=== PATIENT | male | born 1970 | race Caucasian/White ===

== ENCOUNTER 2017-10-20 12:48 | Observation (INO) | payer OTHER ==
[2017-10-20] MEDS ORDERED: MORPHINE 4 MG/ML SYR ONE ×2 (13:28→15:28)
[2017-10-20] MEDS ORDERED: NA CHLORIDE 0.9% 1,000 ML ONE (13:28)
[2017-10-20 13:42] LABS: Absolute Monocytes 0.9 K/uL (0.1-1.3); Absolute Neutrophil 6.2 K/uL (1.8-8.0); Basophils % 0.7 % (0-1.3); Eosinophils % 2.7 % (0-4.4); Hematocrit 44.2 % (39.6-49.0); Lymphocytes % 21.4 % (15.3-44.8); MCH 31.2 pg (27.0-35.0); MPV 8.4 fL (7.6-11.3); Monocytes % 9.2 % (3.3-12.3)
[2017-10-20 13:44] LABS: Protime INR 0.97
[2017-10-20 13:48] LABS: Bicarbonate 24 mEq/L (21-31); Glucose Level 126 mg/dL (65-120); Potassium 3.8 mEq/L (3.6-5.0); Sodium Level 135 mEq/L (135-145)
--- NOTE | 2017-10-20 13:49 | RAD REPORT ---
EXAM DESCRIPTION: RAD - Chest Single View - 10/20/2017 1:20 pm CLINICAL HISTORY: Chest pain COMPARISON: October 2016 TECHNIQUE: AP portable chest image was obtained 1316 hours . FINDINGS: Lungs are clear. Heart and vasculature are normal. No measurable pleural effusion and no p neumothorax. No gross bony abnormality seen. No acute aortic findings suspected. IMPRESSION: No acute cardiopulmonary process. No significant interval change.
[2017-10-20 13:54] LABS: ALT/SGPT 35 IU/L (10-60); AST/SGOT 30 IU/L (10-42); Albumin 4.2 g/dL (3.2-5.5); Alkaline Phosphatase 92 IU/L (42-121); BUN Blood Urea Nitrogen 21 mg/dL (6-20); Bilirubin Direct 0.1 mg/dL (0-0.2); Bilirubin Total 0.5 mg/dL (0.3-1.2); Creatine Phosphokinase 231 IU/L (22-269); Magnesium 2.1 mg/dL (1.8-2.5)
[2017-10-20 13:58] LABS: CKMB Creatine Kinase MB 3.1 ng/ml (0.3-4.0)
[2017-10-20] MEDS ORDERED: Morphine 2 MG/2 ML SYR IV PRN (15:12)
[2017-10-20] MEDS ORDERED: ACETAMINOPHEN 500 MG TAB PO PRN (15:12)
--- NOTE | 2017-10-20 15:46 | EKG ---
Test Date: 2017-10-20 Test Time: 15:19:21 Quality Control Director: CHANEL MEASUREMENT RESULTS: Intervals: Rate: 61 KS: 134 QRSD: 92 QT: 444 QTc: 446 [place]: P: 42 KS: 134 QRS: -12 T: 38 INTERPRETIVE STATEMENTS: Normal sinus rhythm Normal ECG Compared to ECG 10/20/2017 13:02:10 T-wave abnormality no longer present Prolonged QT interval no longer present Electronically Signed On 10-20-17 15:45:55 CDT by Martín Hollis
--- NOTE | 2017-10-20 15:47 | EKG ---
Test Date: 2017-10-20 Test Time: 13:02:10 Air Traffic Control Manager: AYE MEASUREMENT RESULTS: Intervals: Rate: 79 PA: 132 QRSD: 92 QT: 402 QTc: 460 [place]: P: 48 PA: 132 QRS: -4 T: 49 INTERPRETIVE STATEMENTS: Normal sinus rhythm Nonspecific T wave abnormality Prolonged QT Abnormal ECG Compared to ECG 10/22/2016 18:28:12 T-wave abnormality now present Prolonged QT interval now present Electronically Signed On 10-20-17 15:46:13 CDT by Martín Hollis
--- NOTE | 2017-10-20 15:51 | ER ---
Nurse's Notes [facility] Emergency Department Name: Osvaldo Diaz Age: 47 yrs Sex: Male : 1970 Arrival Date: 10/20/2017 Time: 12:51 Bed 20 Private MD: Tj Mujica T Diagnosis: Chest pain, unspecified Presentation: 10/20 12:52 Presenting complaint: Patient states: left shoulder pain. Pt states "It feels like when aa5 I had my heart attack a few years ago and they had to put a heart stent in". 12:52 Transition of care: patient was not received from another setting of care. Onset of aa5 symptoms was October 20, 2017. Risk Assessment: Do you want to hurt yourself or someone else? Patient reports no desire to harm self or others. Initial Sepsis Screen: Does the patient meet any 2 criteria? No. Patient's initial sepsis screen is negative. Does the patient have a suspected source of infection? No. Patient's initial sepsis screen is negative. Care prior to arrival: None. 12:52 Method Of Arrival: Ambulatory aa5 12:52 Acuity: BRICE 2 aa5 Historical: - Allergies: 12:52 Iodine; aa5 - Home Meds: 13:04 Protonix 40 mg Oral TbEC 1 tab once daily [Active]; Lipitor 20 mg Oral tab 1 tab once aa5 daily [Active]; Coreg 3.125 mg Oral tab once a day [Active]; Flexeril 10 mg Oral tab once a day [Active]; Mobic 15 mg oral tab 1 tab once daily [Active]; Cymbalta 60 mg oral cpDR 1 cap once daily [Active]; valsartan 160 mg oral tab 1 tab once daily [Active]; aspirin 325 mg Oral tab once daily [Active]; - PMHx: 12:52 melanoma; Myocardial infarction; aa5 - PSHx: 12:52 Roberto lymph node removal; aa5 - Immunization history:: Adult Immunizations up to date. - Ebola Screening: : No symptoms or risks identified at this time. - Social history:: Smoking status: Patient uses tobacco products, smokes one-half pack cigarettes per day. Screenin:00 Abuse screen: Denies threats or abuse. Nutritional screening: No deficits noted. em Tuberculosis screening: No symptoms or risk factors identified. Fall Risk None identified. Assessment: 13:56 General: Appears in no apparent distress. comfortable, Behavior is calm, cooperative, em Reports having pain in back, denies N/V, felt like last 2 heart attacks, denies chest pain. Pain: Complains of pain in back Pain currently is 5 out of 10 on a pain scale. Quality of pain is described as pressure. Neuro: Level of Consciousness is awake, alert, obeys commands, Oriented to person, place, time. Cardiovascular: Capillary refill < 3 seconds Patient's skin is warm and dry. Respiratory: Airway is patent Respiratory effort is even, unlabored, Respiratory pattern is regular, symmetrical. GI: Abdomen is round. GI: Patient currently denies nausea, vomiting. : No signs and/or symptoms were reported regarding the genitourinary system. EENT: No signs and/or symptoms were reported regarding the EENT system. Derm: Skin is intact. Musculoskeletal: Range of motion: intact in all extremities. 14:10 Reassessment: Patient appears in no apparent distress at this time. I agree with above iw assessment by Roni Lockett LVN. 15:00 Reassessment: Patient appears in no apparent distress at this time. Patient and/or em family updated on plan of care and expected duration. Pain level reassessed. Patient is alert, oriented x 3, equal unlabored respirations, skin warm/dry/pink. c/o chest pain, Hannah, BOAT OUTFITTER notified, repeat EKG and new med. orders. 15:38 Reassessment: Patient appears in no apparent distress at this time. Patient and/or em family updated on plan of care and expected duration. Pain level reassessed. Patient is alert, oriented x 3, equal unlabored respirations, skin warm/dry/pink. pt eating dinner tray, chest pain relieved, family at bedside. 16:10 Reassessment: Patient appears in no apparent distress at this time. Patient and/or em family updated on plan of care and expected duration. Pain level reassessed. Patient is alert, oriented x 3, equal unlabored respirations, skin warm/dry/pink. request nicotine patch, Hannah, BOAT OUTFITTER notified Patient denies pain at this time. Patient states feeling better. Patient states symptoms have improved. 16:38 Reassessment: Patient appears in no apparent distress at this time. Dr. Emmanuel at em bedside. 17:14 Reassessment: Patient appears in no apparent distress at this time. Patient and/or em family updated on plan of care and expected duration. Pain level reassessed. Patient is alert, oriented x 3, equal unlabored respirations, skin warm/dry/pink. Patient denies pain at this time. Patient states feeling better. Vital Signs: 12:53 BP 150 / 89; Pulse 84; Resp 20 S; Pulse Ox 97% on R/A; aa5 14:00 BP 140 / 90; Pulse 75; Resp 16; Pulse Ox 99% on R/A; Pain 5/10; em 15:00 BP 147 / 82; Pulse 74; Resp 16; Pulse Ox 99% on R/A; em 16:07 BP 138 / 74; Pulse 61; Resp 18; Pulse Ox 96% on R/A; Pain 2/10; em ED Course: 12:51 Patient arrived in ED. mr 12:51 Tj Mujica MD is Private Physician. mr 12:52 Arm band placed on Patient placed in an exam room, on a stretcher. aa5 12:54 Hannah Dupont [facility]-C [facility]. snw 12:54 Prabhakar Goodman MD is Attending Physician. snw 12:58 Triage completed. aa5 13:06 EKG done, by airframe technical officer. reviewed by Hannah PRIEST. at1 13:11 Roni Lockett LVN is Primary Nurse. em 13:19 X-ray completed. Portable x-ray completed in exam room. Patient tolerated procedure jb2 well. 13:20 XRAY Chest (1 view) In Process Unspecified. EDMS 13:20 No provider procedures requiring assistance completed. Initial lab(s) drawn, by me, em sent to lab. Inserted saline lock: 20 gauge in right antecubital area, using aseptic technique. Blood collected. 14:00 Patient has correct armband on for positive identification. Bed in low position. Call em light in reach. Adult w/ patient. 15:29 EKG done, by airframe technical officer. reviewed by Hannah PRIEST. sm3 15:50 Amaury Emmanuel MD is Hospitalizing Provider. snw 17:25 Patient admitted, IV remains in place. em Administered Medications: 13:40 Drug: morphine 4 mg Route: IVP; Site: right antecubital; iw 14:34 Follow up: Response: No adverse reaction; Pain is decreased em 13:46 Drug: NS 0.9% 1000 ml Route: IV; Rate: 75 ml/hr; Site: right antecubital; em 15:30 Drug: morphine 4 mg Route: IVP; Site: right antecubital; em 16:06 Follow up: Response: No adverse reaction; Pain is decreased em 16:41 CANCELLED (order under Dr. Emmanuel): Nitro-Bid Ointment 2 % 0.5 inches Transdermal once tw2 16:56 Drug: Nitro-Bid Ointment 2 % 0.5 inches Route: Transdermal; Site: anterior chest wall; em Outcome: 15:50 Decision to Hospitalize by Provider. snw 17:25 Admitted to Tele accompanied by tech, via stretcher, room 408, with chart, Report em called to GRISELDA Ramos 17:25 Condition: good 17:25 Instructed on the need for admit. 17:28 Patient left the ED. em Signatures: Dispatcher [employer] EDMS Hannah Dupont, RAIL CREW MEMBER-C RAIL CREW MEMBER-CsnTiffanie Rodas mr Cummins, Todd jb2 Levy, Roni, SUPPLY TECH SUPPLY TECH em Rayne Dwyer, RN RN Mary Lou Nagy RN RN aa5 Kelli pierce, greens picker EKG Tat1 Kaitlynn Trejo sm3 Clara Morris RN tw2
--- NOTE | 2017-10-20 15:51 | EDPHYS ---
Physician Documentation [facility] Name: Osvaldo Diaz Age: 47 yrs Sex: Male : 1970 Arrival Date: 10/20/2017 Time: 12:51 Bed 20 Private MD: Tj Mujica T ED Physician Prabhakar Goodman HPI: 10/20 13:05 This 47 yrs old Male presents to ER via Ambulatory with complaints of snw Shoulder Pain. 13:05 This 47 yrs old Male presents to ER via Ambulatory with complaints of snw Shoulder Pain. 13:05 The patient or guardian reports chest pain that is located primarily in the substernal snw area. Onset: suddenly, at 08:00. The pain does not radiate. Associated signs and symptoms: Pertinent positives: diaphoresis. The chest pain is described as clutching. Duration: The patient or guardian reports multiple episodes. Severity of pain: At its worst the pain was moderate severe. The patient has experienced a previous episode, 2014 transferred from [facility] to [facility] for STEMI LAD, rec'd stent. Stopped Plavix 2nd to bleeding. Takes 325mg ASA nightly. The patient has not recently seen a physician. Melanoma in 2011, Sees Dr. Cordova. Historical: - Allergies: 12:52 Iodine; aa5 - Home Meds: 13:04 Protonix 40 mg Oral TbEC 1 tab once daily [Active]; Lipitor 20 mg Oral tab 1 tab once aa5 daily [Active]; Coreg 3.125 mg Oral tab once a day [Active]; Flexeril 10 mg Oral tab once a day [Active]; Mobic 15 mg oral tab 1 tab once daily [Active]; Cymbalta 60 mg oral cpDR 1 cap once daily [Active]; valsartan 160 mg oral tab 1 tab once daily [Active]; aspirin 325 mg Oral tab once daily [Active]; - PMHx: 12:52 melanoma; Myocardial infarction; aa5 - PSHx: 12:52 Roberto lymph node removal; aa5 - Immunization history:: Adult Immunizations up to date. - Ebola Screening: : No symptoms or risks identified at this time. - Social history:: Smoking status: Patient uses tobacco products, smokes one-half pack cigarettes per day. ROS: 13:01 Constitutional: Negative for fever, chills, and weight loss, Eyes: Negative for injury, snw pain, redness, and discharge, ENT: Negative for injury, pain, and discharge, Neck: Negative for injury, pain, and swelling. 13:01 Respiratory: Negative for shortness of breath, cough, wheezing, and pleuritic chest pain, "im always short of breath" Abdomen/GI: Negative for abdominal pain, nausea, vomiting, diarrhea, and constipation, Back: Negative for injury and pain, : Negative for injury, bleeding, discharge, and swelling, MS/Extremity: Negative for injury and deformity, Skin: Negative for injury, rash, and discoloration, Neuro: Negative for headache, weakness, numbness, tingling, and seizure. 13:01 Cardiovascular: Positive for chest pain, of the chest. Exam: 13:01 Constitutional: This is a well developed, well nourished patient who is awake, alert, snw and in no acute distress. Head/Face: Normocephalic, atraumatic. Eyes: Pupils equal round and reactive to light, extra-ocular motions intact. Lids and lashes normal. Conjunctiva and sclera are non-icteric and not injected. Cornea within normal limits. Periorbital areas with no swelling, redness, or edema. ENT: Nares patent. No nasal discharge, no septal abnormalities noted. Tympanic membranes are normal and external auditory canals are clear. Oropharynx with no redness, swelling, or masses, exudates, or evidence of obstruction, uvula midline. Mucous membranes moist. Neck: Trachea midline, no thyromegaly or masses palpated, and no cervical lymphadenopathy. Supple, full range of motion without nuchal rigidity, or vertebral point tenderness. No Meningismus. Chest/axilla: Normal chest wall appearance and motion. Nontender with no deformity. No lesions are appreciated. 13:01 Respiratory: Lungs have equal breath sounds bilaterally, clear to auscultation and percussion. No rales, rhonchi or wheezes noted. No increased work of breathing, no retractions or nasal flaring. Abdomen/GI: Soft, non-tender, with normal bowel sounds. No distension or tympany. No guarding or rebound. No evidence of tenderness throughout. Back: No spinal tenderness. No costovertebral tenderness. Full range of motion. Skin: Warm, dry with normal turgor. Normal color with no rashes, no lesions, and no evidence of cellulitis. MS/ Extremity: Pulses equal, no cyanosis. Neurovascular intact. Full, normal range of motion. Neuro: Awake and alert, GCS 15, oriented to person, place, time, and situation. Cranial nerves II-XII grossly intact. Motor strength 5/5 in all extremities. Sensory grossly intact. Cerebellar exam normal. Normal gait. Psych: Awake, alert, with orientation to person, place and time. Behavior, mood, and affect are within normal limits. 13:01 Cardiovascular: Rate: normal, Rhythm: regular, Pulses: no pulse deficits are appreciated, Heart sounds: normal, Edema: is not appreciated, JVD: is not appreciated. Vital Signs: 12:53 BP 150 / 89; Pulse 84; Resp 20 S; Pulse Ox 97% on R/A; aa5 14:00 BP 140 / 90; Pulse 75; Resp 16; Pulse Ox 99% on R/A; Pain 5/10; em 15:00 BP 147 / 82; Pulse 74; Resp 16; Pulse Ox 99% on R/A; em 16:07 BP 138 / 74; Pulse 61; Resp 18; Pulse Ox 96% on R/A; Pain 2/10; em MDM: 12:54 Patient medically screened. snw 15:51 The patient was given aspirin in the Emergency Department. Data reviewed: vital signs, snw nurses notes. Data interpreted: Pulse oximetry: on room air is 97 %. Interpretation: normal. Physician consultation: Amaury Emmanuel MD was called at 15:45, was contacted at 15:45, regarding admission, to the telemetry unit. 10/20 12:54 Order name: Basic Metabolic Panel; Complete Time: 14: snw 10/20 12:54 Order name: BNP; Complete Time: 14: snw 10/20 12:54 Order name: CBC with Diff; Complete Time: 14: snw 10/20 12:54 Order name: Ckmb; Complete Time: 14: snw 10/20 12:54 Order name: CPK; Complete Time: 14: snw 10/20 12:54 Order name: LFT's; Complete Time: 14: snw 10/20 12:54 Order name: Magnesium; Complete Time: 14: snw 10/20 12:54 Order name: PT-INR; Complete Time: 14: snw 10/20 12:54 Order name: Ptt, Activated; Complete Time: 14:01 snw 10/20 12:54 Order name: Troponin (emerg Dept Use Only); Complete Time: 14:01 snw 10/20 15:16 Order name: Basic Metabolic Panel EDMS 10/20 15:16 Order name: Basic Metabolic Panel EDMS 10/20 15:16 Order name: Basic Metabolic Panel EDMS 10/20 15:16 Order name: Basic Metabolic Panel EDMS 10/20 12:54 Order name: XRAY Chest (1 view); Complete Time: 13:54 snw 10/20 15:16 Order name: Echo with Doppler EDMS 10/20 15:16 Order name: CBC with Automated Diff EDMS 10/20 15:16 Order name: CBC with Automated Diff EDMS 10/20 15:16 Order name: CBC with Automated Diff EDMS 10/20 15:16 Order name: CBC with Automated Diff EDMS 10/20 15:16 Order name: Lipid Profile EDMS 10/20 15:16 Order name: Lipid Profile EDMS 10/20 15:16 Order name: Troponin I EDMS 10/20 15:16 Order name: Troponin I EDMS 10/20 15:16 Order name: Troponin I EDMS 10/20 12:54 Order name: EKG; Complete Time: 12:55 snw 10/20 12:54 Order name: Cardiac monitoring; Complete Time: 14:35 snw 10/20 12:54 Order name: EKG - Nurse/Tech; Complete Time: 14:35 snw 10/20 12:54 Order name: IV Saline Lock; Complete Time: 14:35 snw 10/20 12:54 Order name: Labs collected and sent; Complete Time: 14:35 snw 10/20 12:54 Order name: O2 Per Protocol; Complete Time: 14:35 snw 10/20 12:54 Order name: O2 Sat Monitoring; Complete Time: 14:35 snw 10/20 14:30 Order name: Diet Heart Healthy; Complete Time: 14:30 ag 10/20 15:09 Order name: EKG; Complete Time: 15:10 snw 10/20 15:16 Order name: CONS Physician Consult EDMS Administered Medications: 13:40 Drug: morphine 4 mg Route: IVP; Site: right antecubital; iw 14:34 Follow up: Response: No adverse reaction; Pain is decreased em 13:46 Drug: NS 0.9% 1000 ml Route: IV; Rate: 75 ml/hr; Site: right antecubital; em 15:30 Drug: morphine 4 mg Route: IVP; Site: right antecubital; em 16:06 Follow up: Response: No adverse reaction; Pain is decreased em 16:41 CANCELLED (order under Dr. Emmanuel): Nitro-Bid Ointment 2 % 0.5 inches Transdermal once tw2 16:56 Drug: Nitro-Bid Ointment 2 % 0.5 inches Route: Transdermal; Site: anterior chest wall; em Disposition: 17:37 Co-signature as Attending Physician, Prabhakar Goodman MD I agree with the assessment and kdr plan of care. Disposition: 10/20/17 15:50 Hospitalization ordered by Amaury Emmanuel for Observation. Preliminary diagnosis is Chest pain, unspecified. - Bed requested for Telemetry/MedSurg (observation). - Status is Observation. em - Condition is Stable. - Problem is new. - Symptoms are unchanged. UTI on Admission? No Signatures: Dispatcher [employer] EDMS Prabhakar Goodman MD MD [facility] Hannah Dupont, SILVER CLEANER-C SILVER CLEANER-Csnw Roni Lockett, MILLING GENERAL SUPERINTENDENT MILLING GENERAL SUPERINTENDENT em Rayne Dwyer, RN GRISELDA Mary Lou Calvert RN RN aa5 Tammy Vera Tara, RN RN tw2 Corrections: (The following items were deleted from the chart) 16:41 16:41 Nitro-Bid Ointment 2 % 0.5 inches Transdermal once ordered. tw2 tw2 16:53 15:50 Hospitalization Ordered by Amaury Emmanuel MD for Observation. Preliminary diagnosis ag is Chest pain, unspecified. Bed requested for Telemetry/MedSurg (observation). Status is Observation. Condition is Stable. Problem is new. Symptoms are unchanged. UTI on Admission? No. snw 17:28 16:53 10/20/2017 15:50 Hospitalization Ordered by Amaury Emmanuel MD for Observation. em Preliminary diagnosis is Chest pain, unspecified. Bed requested for Telemetry/MedSurg (observation). Status is Observation. Condition is Stable. Problem is new. Symptoms are unchanged. UTI on Admission? No. ag
[2017-10-20] MEDS ORDERED: ENOXAPARIN 40 MG/0.4 ML SQ SCH (16:00)
[2017-10-20] MEDS ORDERED: NICOTINE 21 MG/PAT TD ONE (16:21)
[2017-10-20] MEDS ORDERED: NITROGLYCERIN 1 GM PKT TD ONE (16:52)
[2017-10-20 17:49] VITALS: BMI 33.9
[2017-10-20] MEDS: NITROGLYCERIN 0.4 MG/TAB SL PRN ×2 (18:21→19:24)
[2017-10-20] MEDS ORDERED: predniSONE 20 MG TAB PO ONE (19:49)
--- NOTE | 2017-10-20 20:00 | EKG ---
Test Date: 2017-10-20 Test Time: 18:42:52 Director Of Photography: JIA Jacobs MEASUREMENT RESULTS: Intervals: Rate: 74 [place]: 134 QRSD: 92 QT: 442 QTc: 490 [place]: P: 46 LA: 134 QRS: -1 T: 61 INTERPRETIVE STATEMENTS: Normal sinus rhythm Normal ECG Compared to ECG 10/20/2017 15:19:21 no significant change from previous ECG Electronically Signed On 10-20-17 20:00:22 CDT by Martín Hollis
[2017-10-20] MEDS: CARVEDILOL 3.125 MG TAB PO SCH (20:04)
[2017-10-20] MEDS: Morphine 2 MG/2 ML SYR IV PRN (20:06)
[2017-10-20] MEDS ORDERED: ENOXAPARIN 100 MG/ML SYR SQ SCH (21:00)
--- NOTE | 2017-10-20 21:13 | CON ---
History Of Present Illness: Mr. Diaz is 47, came to the hospital with chest pain. The chest pain started at 7:30 this morning. The only thing that has relieved his chest pain is morphine, tends to wear off in 4 hours, and his chest pain comes back, so the chest pain has basically been constant, ex cept for when morphine numbs the pain for more than 12 hours. EKGs and troponins are negative. Hist ory is confusing. The patient says 1 year ago he had a heart attack, but almost 1 year ago, he was i n our hospital, and the history then said that 2 years ago he had an AR and was treated with an LAD s tent, totally occluded diagonal. Right coronary and circumflex were normal. This was done at [facility] by Dr. Veliz. The patient has been following up with primary care physician, not sure if he is going to see Dr. Veliz, and has expressed to us that he is taking medications at home. He smokes 3 packs of cigarettes per week or about 15 cigarettes per day. Outpatient Medications: Protonix, Lipitor 20, Coreg 3.125, Flexeril, Mobic, Cymbalta, valsartan, asp irin. Past Medical History: He has a history of melanoma removed, apparently cured. Physical Examination: General: He is a little older appearing than his stated age, 6 feet tall, 250 pounds, obese, alert, oriented, pleasant, cooperative, not in distress. Lungs: Clear. Heart: Normal. Extremities: Normal. Vital Signs: Blood pressure 112/68, heart rate 67. Laboratory Data: His EKG is within normal limits. The troponin is within normal limits. The tropon in was drawn at 1 o'clock today after he had pain already for more than 5 hours. Impression: Mr. Diaz is not having an acute coronary syndrome, but I have recommended a cardiac ca th as the picture is confusing. A year ago a stress test was negative. I think we would be unsatisf ied still, concerned that something would be wrong if we just did a stress test and it was normal, so I have recommended a cardiac cath. We will do that tomorrow. Dr. William will be the radio control crane operator. We will be ready to put a stent in if we needed, and we will have clear documentation of whether this i s an acute coronary syndrome or musculoskeletal pain. With the patient taking so many medicines that are detrimental to the heart, namely Mobic and Flexeril, I am very concerned that he may have advanc ed his heart disease. Also, he is a heavy cigarette smoker, so doing a cardiac cath is very reasonab le. The patient seems to understand the procedure, its potential benefits, indications, risks, and a grees to proceed. RIAZ/BLAKE Voice ID: [id number] Report ID: [id number]
--- NOTE | 2017-10-21 01:56 | HP ---
Date of Admission: 10/20/2017 Primary Care Physician: Dr. Cordova. Clarity Developer: Martín Hollis MD, with Cardiology. Code Status: Full. History Of Present Illness: The patient is a 47-year-old male with past medical history of coronary artery disease, status post stent; melanoma, status post surgery; sciatica; GERD; hyperlipidemia; who comes in with chest pain upon exertion. 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 The patient had sudden onset of pain behind his left shoulder associated wit h diaphoresis and nausea. No vomiting. The patient denies any palpitations and does report some jorden rtness of breath that is around his baseline. The patient states that this pain is very similar to h is pain when he had his first heart attack and had to be life flighted to [facility] for and CA resulti ng in LAD stent in 2014. The patient since then has continued to take his medications. He is on asp irin however, takes Mobic as well for his sciatic pain. He was taken off Plavix due to his bleeding. The patient's symptoms are constant, moderate, progressively worsening. The patient's symptoms are relieved with rest. The patient came into the ER for further evaluation. Upon arrival, his vital s igns were stable. His initial troponin was negative. EKG did not show any significant changes. Inna st x-ray was normal. The patient was referred for admission. When seen in the ER, he was awake, chris rt, oriented x3, in some mild distress, still complaining of some chest discomfort. Past Medical History: Coronary artery disease, status post stent; melanoma of the back, status post surgery; lymph node dissection; sciatica; hyperlipidemia; and GERD. Past Surgical History: LAD stent in 2014, resection of melanoma from the back along with lymph node dissection, surgery on his right elbow. Allergies: IODINE. Medications: List reviewed. Social History: The patient is . 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 I ndependent in his activities of daily living. The patient continues to smoke about 3 packs per week. Drinks alcohol occasionally. No illicit drug use. Family History: Half sister also has coronary artery disease. Review of Systems: An 11-point system reviewed, negative except as per HPI. Physical Examination: Vital Signs: Blood pressure 150/89, pulse 84, respirations 20, O2 saturation 97% on room air. General: Awake, alert, oriented x3. Some mild distress due to chest discomfort. Obese, appears old er than stated age. HEENT: Normocephalic, atraumatic. PERRLA. Poor dentition. Conjunctiva anicteric. Neck: Supple. No JVD. Trachea midline. CV: S1, S2. Regular rate and rhythm. No murmurs. Peripheral pulses are present bilaterally. Respiratory: Clear to auscultation bilaterally. No wheezing. No stridor. No use of accessory musc les. Gastrointestinal: Abdomen is soft, nontender, nondistended. Positive bowel sounds. No guarding or rigidity. No palpable masses. Extremities: No clubbing or cyanosis. Some trace pedal edema. No calf tenderness. NEUROLOGIC: Cranial nerves II through XII intact grossly, 5/5 strength bilateral upper and lower ext remities. Sensation intact to light touch. Speech is normal. Skin: No rashes. Normal skin turgor. Psych: Mood is okay. Affect is full. Insight and judgment are good. Laboratory Data: Sodium 135, potassium 3.8, chloride 105, CO2 of 24. BUN 21, creatinine 0.89, gluco se 126, calcium 9.2. Troponin less than 0.03. BNP 17. WBC 9.4, H and H 15 and 44.2, platelets 255. INR 0.97. Diagnostic Data: EKG shows normal sinus rhythm, rate of 79, nonspecific T-wave abnormality. Chest x -ray shows no acute intrathoracic process. Assessment And Plan: A 47-year-old male with; 1.Unstable angina. We will start on chest pain guidelines. We will give anticoagulation, beta bloc ker with Coreg, lisinopril, statin, and aspirin. We will consult Cardiology. The patient is still h aving some chest discomfort. We will apply nitroglycerin paste. 2.Nicotine dependence with cigarette smoking. Counseled. 3.Coronary artery disease, status post stent in left anterior descending artery in 2014. 4.Gastroesophageal reflux disease without esophagitis. We will continue PPI. 5.Hyperlipidemia. 6.Continue statin. 7.Sciatica. The patient is on Cymbalta. We will hold Mobic for now. 8.Obesity. 9.Gastrointestinal and deep venous thrombosis prophylaxis with PPI and Lovenox. Plan: Admit the patient to Med-Surg, [facility] as observation. SA/MODL Voice ID: [id number]
[2017-10-21] MEDS: Morphine 2 MG/2 ML SYR IV PRN ×2 (02:00→06:00)
[2017-10-21 05:26] LABS: Absolute Monocytes 0.3 K/uL (0.1-1.3); Absolute Neutrophil 10.8 K/uL (1.8-8.0); Basophils % 0.2 % (0-1.3); Eosinophils % 0.1 % (0-4.4); Hematocrit 46.4 % (39.6-49.0); Lymphocytes % 8.3 % (15.3-44.8); MCV 92.6 fL (80-100); MPV 8.5 fL (7.6-11.3); Monocytes % 2.6 % (3.3-12.3); RBC Red Blood Cell Count 5.01 M/uL (4.33-5.43)
[2017-10-21] MEDS ORDERED: LIDOCAINE 1% 20 ML MDV ONE (05:39)
[2017-10-21] MEDS ORDERED: HEPA 1000U/500MLS 1,000 UNIT/500 ML BAG IV ONE (05:39)
[2017-10-21 05:48] LABS: Potassium 4.6 mEq/L (3.6-5.0)
[2017-10-21 05:59] LABS: Blood Morphology Comment NOT SEEN (NOT SEEN); Platelet Estimate ADEQ
[2017-10-21] MEDS: CARVEDILOL 3.125 MG TAB PO SCH (06:10)
[2017-10-21] MEDS ORDERED: ATROPINE SULF 1 MG/10 ML SYR IV ONE (06:21)
[2017-10-21] MEDS ORDERED: FENTANYL CITR 100 MCG/2 ML ONE (06:21)
[2017-10-21] MEDS ORDERED: MIDAZOLAM HCL 2 MG/2 ML INJ ONE (06:21)
[2017-10-21] MEDS ORDERED: NA CHLORIDE 0.9% 0 ML ONE (06:21)
[2017-10-21] MEDS ORDERED: METHYLPREDNISOLONE 125 MG INJ IV ONE (07:00)
[2017-10-21] MEDS ORDERED: MORPHINE 4 MG/ML SYR IV PRN (07:21)
[2017-10-21] MEDS ORDERED: LISINOPRIL 10 MG TAB PO SCH (09:00)
[2017-10-21] MEDS ORDERED: ASPIRIN EC 81 MG TAB PO SCH (09:00)
[2017-10-21 11:41] VITALS: BP 127/86; TEMP 98.5
[2017-10-21 11:58] VITALS: O2SAT 94
--- NOTE | 2017-10-21 12:14 | OP ---
Surgeon: Yoni William MD Sports Complex Attendant: Sofy Quiroga. Admitted to Dr. Emmanuel's service on 10/20/2017. The patient was seen by Dr. Martín Hollis for history of coronary artery disease, chest pain, possible unstable angina, scheduled for a heart catheterizati on today on 10/21/2017. 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 He was prepped a nd draped in the routine sterile fashion. The procedure that was done was left heart catheterization , left ventriculogram, selective coronary arteriogram. A 6-Czech sheath was introduced in the right common femoral artery. Angio-Seal was used to close the case. A 6-Czech Yoavny catheter was used to do the diagnostic catheterization. He had a normal LAD with a patent proximal LAD stent. He had a normal circumflex with about a 40% ostial OM lesion. He had a 30% to 40% mid RCA. LV function wa s normal with normal left ventricular end-diastolic pressure and ejection fraction. His blood pressu re was normal throughout and he had normal telemetry. Complications: None. Blood Loss: 5 cc. Conscious Sedation: 30 minutes. Plan: Plan is for medical therapy. He can go home today and follow up with us in 2 weeks. Operators: Marlo Murphy Voice ID: [id number] Report ID: [id number]
--- NOTE | 2017-10-21 14:16 | DS ---
Date of Discharge: 10/21/2017 Consultants: Dr. William with Cardiology and Dr. Hollis with Cardiology. Procedures: On 10/21/2017, cardiac catheterization by Dr. William. No intervention. LAD stent is p atent. The patient does have some mild coronary artery disease. Admitting Diagnoses: 1.Unstable angina, rule out acute coronary syndrome. 2.Nicotine dependence with cigarette smoking, uncomplicated. 3.Coronary artery disease status post stent in left anterior descending artery. 4.Gastroesophageal reflux disease without esophagitis. 5.Mixed hyperlipidemia. 6.Sciatica. 7.Obesity, BMI 33.9. Discharge Diagnoses: 1.Unstable angina, acute coronary syndrome ruled out. Cardiac catheterization completed. Mild RCA disease. LAD stent is patent. No further intervention. 2.Nicotine dependence with cigarette smoking, counseled. 3.Coronary artery disease status post stent in LAD, stable. 4.Gastrointestinal and deep venous thrombosis prophylaxis without esophagitis. Continue PPI. 5.Mixed hyperlipidemia. Increase statin dose. 6.Sciatica. Discontinue Mobic and Flexeril due to side effects on the heart. 7.Obesity, BMI 33. Hospital Course: The patient is a 47-year-old male, who appears older than his stated age, who has h istory of coronary artery disease with a stent to the LAD, comes in with chest pain, which was simila r to his previous. The patient was admitted to the hospital. Chest pain guidelines were initiated. His initial workup including cardiac enzymes and EKG were negative. The patient did have significan t amount of chest pain, which was not well controlled with medications. The patient was given morphi ne and nitro and pain subsided. The patient was seen by Dr. William and taken for cardiac catheteriz ation with the results as above. No intervention was done in terms of stent placement. The patient did have some mild disease in the RCA. His previous stent was patent. His EF was normal. The patie nt was then cleared for discharge from Cardiology standpoint. The patient was then discharged home i n stable condition. Activity: As tolerated. Medications: As per medication reconciliation list. Discharge Instructions: Return to work as per Cardiology recommendations. Followup: Follow up with primary care physician in 2-3 days. 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 Drea guaman in 2 weeks. Return to ER for worsening condition. Stop smoking. Physical Examination: General: Awake, alert, oriented, no acute distress. CV: S1, S2. No murmurs. Respiratory: Moving air well bilaterally. Abdomen: Soft, nontender, and nondistended. Positive bowel sounds. Extremities: No clubbing, cyanosis, or edema. Neurologic: Nonfocal. SA/MODL Voice ID: [id number] Report ID: [id number]
[2017-10-21] MEDS ORDERED: ATORVASTATIN 20 MG TAB PO SCH (21:00)
[2017-10-22] MEDS ORDERED: PANTOPRAZOLE 40MG TABLET PO SCH (09:00)
[2017-10-22] MEDS ORDERED: CYCLOBENZAPRINE 10 MG TAB PO SCH (09:00)
[2017-10-22] MEDS ORDERED: DULOXETINE 30 MG CAP PO SCH (09:00)
== END 2017-10-21 11:35 | disposition home or self-care (01) ==
LOC: ER 12:48 → ERHOLD 15:55 → 4TH 17:24 → 3RD-ICU 17:35
PROVIDERS: ADMIT Family Medicine; ATTEND Family Medicine
PROC: 4A023N7 Measurement of Cardiac Sampling and Pressure, Left Heart, Percutaneous Approach (ICD-10-PCS; principal; 2017-10-21)
PROC: B201YZZ Plain Radiography of Multiple Coronary Arteries using Other Contrast (ICD-10-PCS; 2017-10-21)
PROC: B205YZZ Plain Radiography of Left Heart using Other Contrast (ICD-10-PCS; 2017-10-21)
DX: I25.110 Atherosclerotic heart disease of native coronary artery with unstable angina pectoris (principal); K21.9 Gastro-esophageal reflux disease without esophagitis; E78.2 Mixed hyperlipidemia; M54.30 Sciatica, unspecified side; F17.210 Nicotine dependence, cigarettes, uncomplicated; E66.9 Obesity, unspecified; Z68.33 Body mass index [BMI] 33.0-33.9, adult; Z95.5 Presence of coronary angioplasty implant and graft; Z85.820 Personal history of malignant melanoma of skin; Z91.013 Allergy to seafood
CPT/HCPCS: 36415; 71045; 80048; 80061; 80076; 82550; 82553; 83735; 83880; 84484; 85025; 85610; 85730; 93005; 93458; 94760; 96374; 99285; C1760; C1893; G0378; J0583; J2250; J2270; J2930; J3010; J7030; J7512

== ENCOUNTER 2017-11-01 08:56 | Day surgery (SDC) | payer OTHER ==
[2017-10-28 09:43] LABS: Absolute Monocytes 1.1 K/uL (0.1-1.3); Absolute Neutrophil 8.8 K/uL (1.8-8.0); Basophils % 0.5 % (0-1.3); Eosinophils % 1.9 % (0-4.4); Hematocrit 46.9 % (39.6-49.0); MCV 91.8 fL (80-100); MPV 8.7 fL (7.6-11.3); Monocytes % 9.4 % (3.3-12.3); RBC Red Blood Cell Count 5.11 M/uL (4.33-5.43)
[2017-10-28 10:22] LABS: Potassium 4.5 mEq/L (3.6-5.0)
[2017-11-01] MEDS ORDERED: Ringers Lactate 1,000 ML IV ONE (09:05)
[2017-11-01] MEDS ORDERED: CEFAZOLIN/SWI 1gm 1 GM/10 ML SYR ONE (09:06)
[2017-11-01] MEDS: BUPIVACAINE 0.5% Inj,MDV 50 mL VIAL ONE ×2 (09:33→09:53)
[2017-11-01] MEDS ORDERED: MIDAZOLAM HCL 2 MG/2 ML INJ ONE (09:44)
[2017-11-01] MEDS ORDERED: ROCURONIUM 50 MG/5 ML VIAL IV ONE (09:54)
[2017-11-01] MEDS ORDERED: LIDOCAINE 2% MPF 5 ML VIAL ONE (09:54)
[2017-11-01] MEDS ORDERED: PROPOFOL 200 MG/20 ML VIAL IV ONE (09:54)
[2017-11-01] MEDS ORDERED: FENTANYL CITR 100 MCG/2 ML ONE (09:54)
[2017-11-01] MEDS ORDERED: ONDANSETRON HCL 40 MG/20 ML VIAL ONE (09:55)
[2017-11-01] MEDS ORDERED: MEPERIDINE HCL 25 MG/0.5 ML ONE (10:36)
[2017-11-01] MEDS ORDERED: EPHEDRINE SULF 50 MG/5 ML SYR ONE (10:51)
[2017-11-01] MEDS ORDERED: GLYCOPYRROLATE 0.2 MG/ML SYR ONE (10:55)
[2017-11-01] MEDS ORDERED: NEOSTIGMINE 1 MG/ML -5 ML SYRINGE ONE (10:55)
[2017-11-01] MEDS: MEPERIDINE HCL 50 MG/ML AMP ONE ×5 (11:10→11:39)
[2017-11-01] MEDS: MORPHINE 4 MG/ML SYR ONE ×4 (11:49→12:05)
[2017-11-01] MEDS ORDERED: MORPHINE 4 MG/ML SYR ONE (12:20)
[2017-11-01] MEDS ORDERED: HYDROCODONE/APAP 7.5/325 MG TAB ONE (12:34)
[2017-11-01] MEDS ORDERED: HYDROCODONE/APAP 10/325 TAB ONE (14:35)
[2017-11-01 14:56] VITALS: O2SAT 94
[2017-11-01 15:19] VITALS: BP 120/69; TEMP 98
--- NOTE | 2017-11-01 21:20 | OP ---
Date of Procedure: 11/01/2017 Surgeon: Maxim Hull MD Professor Of Management: YOEL Ferguson. Preoperative Diagnosis: Umbilical hernia. Postoperative Diagnosis: Incarcerated umbilical hernia. Procedure Performed: Laparoscopic assisted repair of incarcerated umbilical hernia. Estimated Blood Loss: Minimal. Specimen: Hernia sac. Findings: As above. Anesthesia: General. Complications: None. Disposition: The patient tolerated the procedure in stable condition and taken to Recovery in good g eneral condition. Procedure In Detail: The patient was brought to the OR and placed in supine position. General anest hesia was begun. The patient was prepped and draped in usual sterile fashion, and then Marcaine 0.5% was infiltrated locally in the left upper quadrant. A 2-cm incision was made. Subcutaneous tissue was divided. The fascia was identified and divided. A #1 Vicryl stay suture was placed. Peritoneal cavity was entered with sharp and blunt dissection. A 12-mm trocar was placed into the peritoneal c avity under direct vision. Pneumoperitoneum was established, and then a 5-mm trocar was placed in th e left lower quadrant. Laparoscopy revealed incarcerated omentum and approximately 3 cm defect. Sub sequently, cautery was used to remove the omentum from the hernia defect and then a 4 cm midline inci albert was made right over the hernia. Subcutaneous tissue was divided. Hernia sac was identified, ex cised, and sent to Pathology as specimen. A 3-cm defect remained in and Ventralex mesh placed, and p rimary closure of the fascial defect accomplished with #1 PDS and then wound irrigated. Bleeding con trolled with cautery. A 3-0 chromic was used for subcutaneous tissue and close the skin. Pneumoperi toneum reestablished. Complete coverage of the hernia defect with 3 cm border accomplished and then all trocars were removed under direct vision. Stay sutures were tied to each other across the fascia l defect. Subcutaneous wounds were irrigated. Bleeding was controlled with cautery. A 3-0 chromic was used to approximate the subcutaneous tissues and sterile dressing was applied. The patient was a wakened and taken to recovery in good general condition. Discharge Note: The patient will go to Day Surgery and home when stable. Disposition: Home. Condition: Stable. Discharge Instructions: Resume home medications and diet. Activity as tolerated. No heavy lifting. Remove outer dressing in 2 days. Shower. Keep wound clean and dry. Keep Steri-Strips on at all t imes. Abdominal binder, incentive spirometry. Tylenol No. 3 one tablet p.o. q.4 p.r.n. pain. Follo w up in my office in 1 week. Call for appointment. TINA/BLAKE Voice ID: [id number] Report ID: [id number]
== END 2017-11-01 15:35 | disposition home or self-care (01) ==
LOC: OR 08:56
PROVIDERS: ATTEND Surgery
PROC: 0WUF0JZ Supplement Abdominal Wall with Synthetic Substitute, Open Approach (ICD-10-PCS; principal; 2017-11-01 10:00)
DX: K42.0 Umbilical hernia with obstruction, without gangrene (principal); I25.10 Atherosclerotic heart disease of native coronary artery without angina pectoris; I25.2 Old myocardial infarction; K21.9 Gastro-esophageal reflux disease without esophagitis; E66.9 Obesity, unspecified; Z95.5 Presence of coronary angioplasty implant and graft
CPT/HCPCS: 36415; 80048; 85025; 88302; J0690; J2175; J2250; J2405; J2710; J3010